=== PATIENT | male | born 1955 | race Caucasian/White ===

== ENCOUNTER 2024-08-25 17:02 | Emergency (ER) | payer MEDICARE, BC ==
[~2024-08-25] VITALS: Ht 182.9 cm; Wt 103.6 kg
[2024-08-25] MEDS: LIDOcaine 1% 30ml preserv. free vial IJ ONE (18:29)
[2024-08-25 18:54] VITALS: BP 135/85; PULSE 87; RESP 18; TEMP 98.1; O2SAT 98
[2024-08-25] MEDS: cephalexin 250mg capsule PO ONE (19:02)
[2024-08-25] MEDS ORDERED: HYDR-3965 PO (19:02)
[2024-08-25] MEDS ORDERED: CEPH-585 PO (19:02)
[2024-08-25] MEDS: TETanus/Pertussis (Acell)/Diphther VAC/PF (Tdap-Adult) 0.5ml syringe IMVAC ONE (19:03)
--- NOTE | 2024-08-25 19:03 | Physician Documentation ---
History of Present Illness ~ Chief Complaint: Laceration Stated Complaint: FINGER LACERATION Time Seen by MD: 17:37 Source: patient Mode of Arrival: POV Exam Limitations: no limitations HPI 69-year-old right-handed male with chief complaint left index finger laceration after he cut his finger with his wrench. He states he was working on removing the tire from his boat and the wrench came out of his hand and hit his left index finger. No pre arrival treatment. Last tetanus was more than 10 years ago able to move his finger normally. Patient states it has been bleeding a good amount as he is on Plavix and aspirin Medication Reconciliation Allergies: Coded Allergies: No Known Allergies (Unverified , 08/25/24) Past Medical History Past Medical History: No Pertinent History Past Surgical History: noncontributory Drug Use: none Review of Systems All Other Systems at this time: Reviewed and Negative Physical Exam Vital Signs: Temperature: 98.1, Source: Oral, Heart Rate: 87, Respiratory Rate: 18, BP: 135/85, Pulse Oximetry: 98, Weight: 103.640 Physical Exam General Appearance: Alert, WD/WN. NAD. Musculoskeletal: Left index finger laceration over the volar surface, active range motion of digit is full. cap refill normal at finger tip. HEENT: NCAT, PERRL, EOMI. Neck: Supple, trachea midline. Cardiovascular: RRR. No m/r/g. Lungs: CTAB. Breathing unlabored Extremities: Normal inspection. No edema. Skin: Warm/dry, normal color Neurological: Alert and oriented x4, normal gait. Psychiatric: Affect congruent with mood. Procedures Laceration/Wound Repair Laceration : Location: Digit block Length (cm): 2 Anesthesia: Lidocaine Volume Anesthetic (mls): 8 Prep: irrigated by nurse Irrigated w/ Saline (mls): 500 Debrided: minimal Undermining: none Margins: revised Foreign Body: not identified Repaired: skin Wound Repaired With: sutures Suture Size/Type: 5-0, ethilon Dressing Applied: simple Splint Applied?: Yes Sling Applied?: Yes Tolerated Procedure Well?: yes, no complications Progress Results/Orders Results/Orders Orders - PRO DON Laceration/I&D Tray Set Up (08/25/24 17:40) Completed Orders - PRO DON Tetanus/Pertuss/Diph Acell/Pf (Boostrix (08/25/24 17:40) Lidocaine 1% 30ml Vial (Xylocaine 1% Via (08/25/24 17:40) Cephalexin Capsule (Keflex Capsule) (08/25/24 18:55) Vital Signs 08/25/24 08/25/24 17:20 18:54 Temp 98.1 98.1 Pulse 70 87 Resp 14 18 B/P (MAP) 143/99 135/85 Pulse Ox 97 98 Medical Decision Making Differential Dx:Considerations: Include: Abrasion, Avulsion, Contusion, Laceration, Fracture, Hematoma, Neurovascular injury, Retained foreign body Departure Time of Disposition: 18:59 Disposition: 01 HOME / SELF CARE / HOMELESS Impression: Primary Impression: Laceration Condition: Stable Discharge Instructions: Laceration Care, Adult, [id number] Additional Instructions: do not get wet x 24hours sutures need to be removed in 7days Referrals: NO PRIMARY CARE PROVIDER (PCP) Prescriptions Cephalexin*Monohydrate* (Keflex*) 500 Mg Capsule 1 CAP PO Q8H for 5 Days, #15 CAP Prov: PRO DON 08/25/24 Hydrocodone Bit/Acetaminophen 5/325 MG ([place] 5/325 MG) 5 Mg/325 Mg Tablet 1 TAB PO TID PRN PRN for pain for 5 Days, #15 TAB dx: laceration finger S61.219A Prov: PRO DON 08/25/24 Education Educated: Patient Educated regarding: diagnosis, treatment, need for follow up Signature Scribe Signature: x Attestation: PRO Jarvis August 25, 2024 19:03
== END 2024-08-25 19:17 | disposition home or self-care (01) ==
LOC: ER 17:03
DX: S61.211A Laceration without foreign body of left index finger without damage to nail, initial encounter (principal); Z79.02 Long term (current) use of antithrombotics/antiplatelets; Z79.82 Long term (current) use of aspirin; W26.9XXA Contact with unspecified sharp object(s), initial encounter; Y93.89 Activity, other specified; Y92.89 Other specified places as the place of occurrence of the external cause; Y99.8 Other external cause status
CPT/HCPCS: 12001; 90715; 99283; A6258; A6402; G0008; Z7610; 90471; A6449

== ENCOUNTER 2024-09-01 14:38 | Emergency (ER) | payer MEDICARE, BC ==
[~2024-09-01] VITALS: Ht 182.9 cm; Wt 101.8 kg
[2024-09-01 14:39] VITALS: BP 125/84; PULSE 66; RESP 16; TEMP 98; O2SAT 98
--- NOTE | 2024-09-01 14:42 | Physician Documentation ---
History of Present Illness ~ Stated Complaint: SUTURE REMOVAL Time Seen by MD: 14:40 Source: patient Mode of Arrival: POV Exam Limitations: no limitations HPI 69-year-old right-handed male with chief complaint here for seven day follow up on laceration to left index finger. His laceration was closed here seven days ago by myself. Patient denies any concerns or complaints including increasing pain in the area, drainage, redness. Medication Reconciliation Allergies: Coded Allergies: No Known Allergies (Unverified , 08/25/24) Discontinued Medications Cephalexin*Monohydrate* (Keflex*), 1 CAP PO Q8H Discontinued Reason: Auto Discontinued Hydrocodone Bit/Acetaminophen 5/325 MG ([place] 5/325 MG), 1 TAB PO TID PRN PRN for pain Discontinued Reason: Auto Discontinued Past Medical History Past Medical History: No Pertinent History Past Surgical History: noncontributory Drug Use: none Review of Systems All Other Systems at this time: Reviewed and Negative Physical Exam Physical Exam General Appearance: Alert, WD/WN. NAD. HEENT: NCAT, PERRL, EOMI. Neck: Supple, trachea midline. Cardiovascular: RRR. No m/r/g. Lungs: CTAB. Breathing unlabored Extremities: Left index finger simple interrupted sutures in place skin is normal in color no erythema, edema, no drainage from area. Skin: Warm/dry, normal color Neurological: Alert and oriented x4, normal gait. Psychiatric: Affect congruent with mood. Progress Progress Note SUTURES REMOVED BY RN IN TRIAGE Results/Orders Reviewed/noted all lab results: Yes Results/Orders Vital Signs 09/01/24 14:39 Temp 98.0 Pulse 66 Resp 16 B/P (MAP) 125/84 Pulse Ox 98 O2 Flow Rate 0 Medical Decision Making Finger Diff Dx:Considerations: Include: Abrasion, Cellulitis, Contusion, Dislocation, Fracture, Hematoma, Laceration, Neurovascular injury, Open fracture, Subungual hematoma Departure Time of Disposition: 14:41 Disposition: 01 HOME / SELF CARE / HOMELESS Impression: Primary Impression: Visit for suture removal Condition: Stable Discharge Instructions: Suture Removal, Care After Additional Instructions: Laceration looks great, almost healed. Sutures removed today but remember the skin is still fragile so make sure to wear the digit splint for about another week when you are working and doing things that put you at risk for breaking open the skin. Referrals: NO PRIMARY CARE PROVIDER (PCP) Education Educated: Patient Educated regarding: diagnosis, treatment, need for follow up Signature Scribe Signature: X Attestation: PRO PANDEY September 01, 2024 14:42
== END 2024-09-01 14:49 | disposition home or self-care (01) ==
LOC: ER 14:38
DX: S61.211D Laceration without foreign body of left index finger without damage to nail, subsequent encounter (principal); X58.XXXD Exposure to other specified factors, subsequent encounter
CPT/HCPCS: 99281